=== PATIENT | male | born 1945 | race Caucasian/White ===

== ENCOUNTER → 2018-07-19 | Outpatient (CLI) | payer OTHER ==
[~2018-07-19] MED LIST: REGADENOSON 0.4 MG/5 ML DISP.SYRIN. IV ONE
--- NOTE | 2018-07-19 11:53 | RAD ---
MR#: [id number] Date of Study: 07/19/2018 Ordering Physician: MILO VALERIO Referring Physician: LINWOOD MILLER Tech: MEHNAZ Chao APPROVED REPORT Test Type: Pharmacological Stress Nurse/Tech: Madina Arndt R.N. Test Indications: SOB Cardiac History: Hypertension, Diabetes Medications: See Electronic Medical Record Medical History: See Electronic Medical Record Resting ECG: sinus edgard Resting Heart Rate: 39 bpm Resting Blood Pressure: 123/64mmHg Pretest Chest Pain: No chest pain Nurse/Tech Notes S1S2, lungs sound clear Consent: The procedure was explained to the patient in lay terms. Informed consent was witnessed. Arik eout was entered into [employer]. History and Stress Test performed by Madina Arndt R.N. Pharm. Details Pharmacologic stress testing was performed using 0.4mg per 5ml of regadenoson given intravenously ove r 7-10 seconds. Stress Symptoms Dyspnea POST EXERCISE Reason for Termination: Infusion complete Target HR: 124 Max HR: 87 bpm Max Blood Pressure: 137/57mmHg Blood Pressure response to exercise: Normal blood pressure response during stress. Chest Pain: No. Arrhythmia: No. ST Change: No. INTERPRETATION Stress EKG Conclusion: The resting EKG showed a sinus bradycardia with T-wave changes in the anterior leads. The stress EKG showed no significant changes from baseline. No EKG evidence of stressed induced ischemia. Imaging Protocol IMAGE PROTOCOL: Rest Tc-99m/stress Tc-99m 1 day Rest: Stress: Viability: Radiopharm.Tc99m [id number] Sestamibi Dose11.2mCi 32mCi Duration 15min. 13min. Img Date 07/19/2018 07/19/2018 Inj-Img [id number]. 60min. Rest Admin Site:IV - Left AntecubitalAdministrator:MEHNAZ Chao Stress Admin Site: IV - Left AntecubitalAdministrator: Arabella Vazquez, RT (R)(N) STRESS DATA End Diast. Vol.109.0mlLVEDV index BSA47.0ml End Syst. Vol.22.0mlLVESV index BSA9.0ml Myocardial Uyfh314.0gEject. Vbwfubwl83.0% Stress Scores Regional WT0.00Summed WT0.00 Regional WM0.00Summed WM0.00 LV Perfusion The stress scans show mild inferior wall thinning. The rest scans showed mild inferior wall thinning. Nuclear imaging shows a fixed inferior wall thinning. With normal LV function this is suggestive of a ttenuation defect. No definitive evidence of reversible ischemia. Wall Motion Left ventricular systolic function is normal. There are no regional wall motion abnormalities. Ejecti on fraction is greater than 70%. LV Perf. Quant 17 Seg. SSS2.00 17 Seg. SRS2.00 17 Seg. SDS0.00 Stress Defect Extent (% LAD)0.00Rest Defect Extent (% LAD)0.00Rev. Defect Extent (% LAD)0.00 Stress Defect Extent (% LCX) 0.00Rest Defect Extent (% LCX)0.00Rev. Defect Extent (% LCX)0.00 Stress Defect Extent (% RCA)8.90Rest Defect Extent (% RCA)8.90Rev. Defect Extent (% RCA)0.00 Stress Defect Extent (% RAKEL)1.70Rest Defect Extent (% RAKEL)1.70Rev. Defect Extent (% RAKEL)0.00 Conclusion 1. Baseline abnormal EKG but no EKG evidence of stressed induced ischemia. 2. Nuclear imaging shows fixed inferior wall thinning suggestive of an attenuation defect in the sett ing of normal LV systolic function. 3. Nuclear imaging shows no reversible ischemia. 4. Left ventricular systolic function is normal with no regional wall motion abnormalities and an eje ction fraction of greater than 70%. 5. Moderate to moderately low risk Lexiscan nuclear stress test. Signed by : Gennaro Olivarez MD Electronically Approved : 07/19/2018 11:51:50
== END | disposition home or self-care (01) ==
LOC: NM 07:16
PROVIDERS: ATTEND Otolaryngology
DX: R06.09 Other forms of dyspnea (principal); R00.1 Bradycardia, unspecified; I10 Essential (primary) hypertension; E11.9 Type 2 diabetes mellitus without complications; R94.31 Abnormal electrocardiogram [ECG] [EKG]
CPT/HCPCS: 78452; 93017; 96374; A9500; J2785

== ENCOUNTER → 2021-07-21 | Outpatient (CLI) | payer OTHER ==
--- NOTE | 2021-07-21 12:51 | KCIC ---
EXAM: Lumbar spine, 5 views. HISTORY: Pain. COMPARISON: None. FINDINGS: 5 views of the lumbar spine are obtained. There is minimal lumbar dextrocurvature. There is no listhesis. There is multilevel endplate remodeling. There is multilevel facet arthropathy, predom inantly the lumbosacral junction. There is disc space narrowing predominantly at the lumbosacral junc tion. IMPRESSION: 1. 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 2. No acute osseous finding. Electronically signed by: Arabella Álvarez MD (07/21/2021 12:49 PM) [id number]
== END ==
LOC: KCIC 10:42
PROVIDERS: ATTEND Family Medicine
DX: M47.816 Spondylosis without myelopathy or radiculopathy, lumbar region (principal); M48.07 Spinal stenosis, lumbosacral region; M48.8X7 Other specified spondylopathies, lumbosacral region
CPT/HCPCS: 72110